=== PATIENT | female | born 1950 | race Caucasian/White ===

== ENCOUNTER → 2020-12-05 | Outpatient (CLI) | payer MEDICARE, OTHER ==
--- NOTE | 2020-12-05 13:30 | KCIC ---
Examination: MRI of the left shoulder without contrast HISTORY: History of left shoulder pain, fall COMPARISON: None TECHNIQUE: Multiplanar, multisequence MR imaging of the left shoulder without contrast. FINDINGS: The long head of the biceps tendon within the bicipital groove. The attachment of the long head the b iceps tendon to the superior labral anchor grossly appears intact. The attachment of the subscapularis tendon grossly appears intact. There is mild to moderate increase d T2 signal identified in the supraspinatus, infraspinatus tendon likely tendinosis. Mild increased signal identified throughout the labrum likely degenerative changes. Moderate degenera tive changes acromioclavicular joint. The muscle bulk grossly appears unremarkable. Small shoulder joint effusion identified . Small amount of fluid identified in subacromial subdeltoid bursa. Fat is present within the rotator interval. The acromion is type II. IMPRESSION: 1. Mild to moderate tendinosis of the rotator cuff. 2. Small amount of fluid identified in the subacromial subdeltoid bursa likely bursitis. 3. Mild degenerative changes acromioclavicular joint, glenohumeral joint. Electronically signed by: Mauricio Montano MD (12/05/2020 1:27 PM) [id number]
== END ==
LOC: KCIC MRI 12:18
PROVIDERS: ATTEND Family Medicine
DX: M19.012 Primary osteoarthritis, left shoulder (principal); M25.412 Effusion, left shoulder
CPT/HCPCS: 73221